=== PATIENT | male | born 1970 | race Caucasian/White ===

== ENCOUNTER 2022-10-10 06:24 | Emergency (ER) | payer MEDICAID ==
[~2022-10-10] VITALS: Ht 170.2 cm; Wt 81.8 kg
[~2022-10-10 06:24] MED LIST: AMLO10TA13 PO; ASPI-611 PO; CARV6.253 PO; CAT2P TD; DOCU100C40 PO; LOSA100T58 PO
[2022-10-10 07:17] LABS: BASOPHILS % (AUTO) 0.4 % (0-1); EOSINOPHILS # (AUTO) 0.1 X10'3 (0-0.9); EOSINOPHILS % (AUTO) 1.1 % (0-6); HEMATOCRIT 36.4 % (42.0-52.0); HEMOGLOBIN 12.1 g/dl (14.0-17.9); LYMPHOCYTES # (AUTO) 0.6 X10'3 (1.1-4.8); MEAN CORPUSCULAR HEMOGLOBIN 31.2 PG (27.0-31.0); MEAN CORPUSCULAR HGB CONC 33.1 g/dL (33.0-36.5); MEAN CORPUSCULAR VOLUME 94.2 FL (78-98); MEAN PLATELET VOLUME 7.1 FL (7.4-10.4); MONOCYTES # (AUTO) 0.4 X10'3 (0-0.9); NEUTROPHILS % (AUTO) 85.5 % (42-75); PLATELET COUNT 234 X10'3 (140-440); RED BLOOD COUNT 3.86 X10'6 (4.70-6.10); RED CELL DISTRIBUTION WIDTH 17.5 % (11.5-14.5)
[2022-10-10 07:31] LABS: APTT 24 SECONDS (22-32)
[2022-10-10 07:33] LABS: ALANINE AMINOTRANSFERASE 19 U/L (12-78); ALBUMIN 4.3 G/DL (3.4-5.0); ALBUMIN/GLOBULIN RATIO 1.2 (1.1-1.5); ALKALINE PHOSPHATASE 22 IU/L (46-116); ANION GAP 6 (8-16); ASPARTATE AMINO TRANSFERASE 22 U/L (10-37); BILIRUBIN,TOTAL 0.7 MG/DL (0.1-1.0); BLOOD UREA NITROGEN 24 MG/DL (7-18); BUN/CREATININE RATIO 3.1 (10.0-20.0); CALCIUM 10.4 MG/DL (8.5-10.1); CHLORIDE 99 MMOL/L (99-107); CREATININE 7.62 MG/DL (0.60-1.10); GLUCOSE 140 MG/DL (70-104); POTASSIUM 3.9 MMOL/L (3.5-5.1); SODIUM 142 MMOL/L (135-145); TOTAL CARBON DIOXIDE 36.8 MMOL/L (24-32); TOTAL PROTEIN 7.8 G/DL (6.4-8.2); eGFR 8 ML/MIN
[2022-10-10] MEDS ORDERED: niCARdipine I.V. 50 MG in normal saline 250ml IV soln 230 ML IV SCH (07:45)
--- NOTE | 2022-10-10 07:46 | NUR ---
Dr. Lauren notified about patiente's high BP
--- NOTE | 2022-10-10 08:04 | NUR ---
I called pharmacist to request for Nicardipine drip ready emeterio
[2022-10-10] MEDS: niCARDipine-NS 40mg/200ml IVPB 250 ML IV SCH ×2 (08:07→14:54)
--- NOTE | 2022-10-10 08:23 | NUR ---
Per Dr. Lauren, our SBP goal is between 160-180 mmHg
[2022-10-10] MEDS ORDERED: meclizine 12.5mg tablet PO ONE (09:15)
[2022-10-10] MEDS ORDERED: ondansetron 4mg rapidly disintigrating tab PO ONE (09:15)
--- NOTE | 2022-10-10 11:10 | NUR ---
Patient did not passed the gait test, he got really dizzy and has unsteady gait. Dr. Lauren notified
--- NOTE | 2022-10-10 11:25 | NUR ---
Patient just went to CT scan for head CT
[2022-10-10 11:42] LABS: CLARITY,URINE CLEAR (Clear); COLOR,URINE STRAW (Yellow); GLUCOSE, URINE 250 mg/dl (Neg); KETONES,URINE NEGATIVE (Neg); LEUKOCYTE ESTERASE ,URINE NEGATIVE (Neg); NITRITES, URINE NEGATIVE (Neg); OCCULT BLOOD,URINE TRACE-INTACT (Neg); PH,URINE 8.5 (4.8-8.0); PROTEIN,URINE 100 mg/dl (Neg); UROBILINOGEN,URINE 0.2 E.U/dL (0.2-1.0)
--- NOTE | 2022-10-10 11:47 | NUR ---
Teleneuro consult initiated. Explained to patient that a neurologist will be talking to him via video call in a while
[2022-10-10 11:50] LABS: UA COLLECTION TYPE CLN CATCH MIDSTREAM
[2022-10-10 11:59] LABS: BACTERIA,URINE NONE SEEN /HPF (Neg); MUCUS STRANDS NONE SEEN /LPF (Neg); RBC,URINE NONE SEEN /HPF (0-2); SQUAMOUS EPITHELIAL CELL,UR FEW /LPF (FEW)
[2022-10-10 12:00] LABS: WBC,URINE 0-4 /HPF (0-4)
--- NOTE | 2022-10-10 13:42 | NUR ---
Teleneuro consultation ongoing.
[2022-10-10] MEDS ORDERED: atorvastatin 20mg tablet PO STA (13:47)
[2022-10-10] MEDS ORDERED: aspirin 325mg tablet PO ONE (13:50)
[2022-10-10] MEDS ORDERED: clopidogrel 75mg tablet PO SCH (14:05)
[2022-10-10 16:02] VITALS: BP 153/100
--- NOTE | 2022-10-10 16:28 | NUR ---
Report given to Tang ALEJANDRO at [facility] IMCU unit.
[2022-10-10] MEDS ORDERED: carVEDilol 3.125mg tablet PO SCH (20:00)
--- NOTE | 2022-10-10 20:38 | NUR ---
1944 transported pt from ER to [facility] with EMS, BP 191/106, HR 84, 99% on room air, increased cardene gtt to 7.5mg/hr, 1949 BP 209/115, pt is resting quietly on gurney, resp even and unlabored, skin p/w/d, GCS 15 alert and oriented x3 1999 BP 186/112, at [facility] 2009 pt able to transfer self without assist from EMS gurney to bed
[2022-10-11] MEDS ORDERED: clopidogrel 75mg tablet PO SCH (08:00)
== END 2022-10-10 20:56 | disposition short-term general hospital (02) ==
LOC: ER 06:26
DX: R42 Dizziness and giddiness (principal); I16.0 Hypertensive urgency; I12.0 Hypertensive chronic kidney disease with stage 5 chronic kidney disease or end stage renal disease; N18.6 End stage renal disease
CPT/HCPCS: 36415; 70450; 71045; 80053; 81001; 83880; 84484; 85025; 85610; 85730; 93005; 96365; 96366; 99291; J3490; J8597

== ENCOUNTER 2024-04-15 11:25 | Day surgery (SDC) | payer MEDICAID ==
[~2024-04-15] VITALS: Ht 170.2 cm; Wt 83.6 kg
[~2024-04-15 11:25] MED LIST changes: -CAT2P TD; +CLON1PAT42 TD
[2024-04-15 12:41] VITALS: BP 161/96; PULSE 65; RESP 16; TEMP 98.2; O2SAT 96
[2024-04-15] MEDS ORDERED: CINA90TA4 PO (13:17)
[2024-04-15] MEDS ORDERED: FERR210T PO (13:17)
[2024-04-15] MEDS ORDERED: CARV12.549 PO (13:17)
[2024-04-15] MEDS ORDERED: CLON0.3T36 PO (13:17)
[2024-04-15] MEDS ORDERED: ATOR40TA72 PO (13:17)
[2024-04-15 13:22] LABS: BASOPHILS # (AUTO) 0.1 X10'3 (0-0.2); BASOPHILS % (AUTO) 1.1 % (0-1); EOSINOPHILS # (AUTO) 0.1 X10'3 (0-0.9); LYMPHOCYTES % (AUTO) 21.7 % (21-51); MEAN CORPUSCULAR HEMOGLOBIN 31.2 PG (27.0-31.0); MEAN CORPUSCULAR HGB CONC 34.1 g/dL (33.0-36.5); MEAN CORPUSCULAR VOLUME 91.4 FL (78-98); MEAN PLATELET VOLUME 7.1 FL (7.4-10.4); MONOCYTES # (AUTO) 0.4 X10'3 (0-0.9); MONOCYTES % (AUTO) 7.9 % (2-12); NEUTROPHILS # (AUTO) 3.2 X10'3 (1.8-7.7); NEUTROPHILS % (AUTO) 66.3 % (42-75); PLATELET COUNT 247 X10'3 (140-440); RED BLOOD COUNT 4.16 X10'6 (4.70-6.10); RED CELL DISTRIBUTION WIDTH 17.7 % (11.5-14.5); WHITE BLOOD COUNT 4.8 X10'3 (4.5-11.0)
[2024-04-15 13:30] VITALS: RESP 16; O2SAT 96
[2024-04-15 13:32] LABS: APTT 28 SECONDS (22-32); INR 1.1 INR; PROTHROMBIN TIME 11.3 SECONDS (9.0-12.0)
[2024-04-15 13:42] LABS: ALANINE AMINOTRANSFERASE 27 U/L (12-78); ALBUMIN 4.1 G/DL (3.4-5.0); ALBUMIN/GLOBULIN RATIO 0.9 (1.1-1.5); ALKALINE PHOSPHATASE 54 IU/L (46-116); ANION GAP 12 (8-16); ASPARTATE AMINO TRANSFERASE 17 U/L (10-37); BILIRUBIN,TOTAL 0.6 MG/DL (0.1-1.0); BLOOD UREA NITROGEN 43 MG/DL (7-18); BUN/CREATININE RATIO 4.1 (10.0-20.0); CALCIUM 9.3 MG/DL (8.5-10.1); CHLORIDE 97 MMOL/L (99-107); GLUCOSE 95 MG/DL (70-104); POTASSIUM 4.4 MMOL/L (3.5-5.1); SODIUM 140 MMOL/L (135-145); TOTAL CARBON DIOXIDE 30.9 MMOL/L (24-32); TOTAL PROTEIN 8.5 G/DL (6.4-8.2); eCRCL 7 ML/MIN; eGFR 5 ML/MIN
[2024-04-15] MEDS ORDERED: heparin 1,000unit/ml 10ml vial 0 ML ONE (14:21)
[2024-04-15] MEDS ORDERED: midazolam 1 mg/ML 2ml injection ONE ×2 (14:21→17:09)
[2024-04-15] MEDS ORDERED: LIDOcaine 1% (10mg/ml)w/preservative inj. 20ml MDV ONE (14:21)
[2024-04-15] MEDS ORDERED: fentaNYL/PF 50MCG/1 ML 2ML syringe ONE ×2 (14:21→17:09)
[2024-04-15] MEDS ORDERED: heparin 1,000 UNITS/NS 500ml 500 ML ONE (14:22)
[2024-04-15] MEDS ORDERED: iohexol 300mg/ml 100ml inj. ONE (14:22)
[2024-04-15] MEDS ORDERED: heparin 1,000unit/ml 10ml vial 10 ML ONE (16:36)
[2024-04-15] MEDS ORDERED: LIDOcaine 1% W/epiNEPHrine 1:100,000 20ml vial ONE (17:35)
[2024-04-15 18:04] VITALS: BP 174/101; PULSE 64; RESP 15; O2SAT 96
[2024-04-15] MEDS ORDERED: normal saline 1000ml 1,000 ML IV SCH (18:15)
[2024-04-15 18:16] VITALS: BP 162/94; PULSE 64; RESP 14; O2SAT 95
[2024-04-15 18:33] VITALS: BP 170/95; PULSE 66; RESP 14; O2SAT 95
[2024-04-15 18:49] VITALS: BP 172/96; PULSE 66; RESP 15; O2SAT 98
== END 2024-04-15 19:10 | disposition home or self-care (01) ==
LOC: SSTAY O 11:25
PROVIDERS: ATTEND Radiology Diagnostic Radiology
DX: T82.858A Stenosis of other vascular prosthetic devices, implants and grafts, initial encounter (principal); J44.9 Chronic obstructive pulmonary disease, unspecified; I12.9 Hypertensive chronic kidney disease with stage 1 through stage 4 chronic kidney disease, or unspecified chronic kidney disease; N18.9 Chronic kidney disease, unspecified; Z79.01 Long term (current) use of anticoagulants; Z79.899 Other long term (current) drug therapy; Y92.89 Other specified places as the place of occurrence of the external cause; Y83.2 Surgical operation with anastomosis, bypass or graft as the cause of abnormal reaction of the patient, or of later complication, without mention of misadventure at the time of the procedure
CPT/HCPCS: 36415; 36558; 36901; 75827; 76937; 77001; 80053; 85025; 85610; 85730; A6258; C1750; C1769; J1644; J2250; J3010; J3490; J7030; Q9967; 99152; 99153; A4620; A6402; A6449; A9270; C1725; C1894

== ENCOUNTER 2025-01-08 01:46 | Inpatient (IN) | payer MEDICAID ==
[2025-01-08] VITALS (15 sets, daily range): BP systolic 125–178; BP diastolic 76–195; PULSE 61–97; RESP 12–20; TEMP 97.4–98.6; O2SAT 94–100
[~2025-01-08] VITALS: Ht 170.2 cm; Wt 73.0 kg
[~2025-01-08 01:46] MED LIST changes: -ASPI-611 PO; +ATOR40TA72 PO; +CARV12.549 PO; -CARV6.253 PO; +CINA90TA4 PO; +CLON0.3T36 PO; -CLON1PAT42 TD; -DOCU100C40 PO; +FERR210T PO
--- NOTE | 2025-01-08 01:56 | Physician Documentation ---
History of Present Illness ~ Stated Complaint: CHEST PAIN Time Seen by MD: 01:56 HPI Patient presents to the emergency room with 45 minutes of acute onset heart racing and chest tightness. No prior instances. Patient missed his dialysis appointment today. He does smoke. Endorses methamphetamine use. Found by EMS to be in SVT. Medication Reconciliation Allergies: Coded Allergies: No Known Allergies (Unverified , 01/08/25) Scheduled Amlodipine Besylate (Amlodipine Besylate), 1 TAB PO DAILY, (Reported) Atorvastatin Calcium (Atorvastatin Calcium), 1 TAB PO DAILY, (Reported) Carvedilol (Carvedilol), 1 TAB PO BID, (Reported) Cinacalcet HCl (Cinacalcet HCl), 1 TAB PO 3 x week, (Reported) Clonidine HCl (Clonidine HCl), 1 TAB PO TID, (Reported) Ferric Citrate (Ferric Citrate), 2 TAB PO TID, (Reported) Losartan Potassium (Losartan Potassium), 1 TAB PO DAILY, (Reported) Past Medical History Past Medical History: Hypertension, *RENAL/*, Chronic Kidney Disease Past Surgical History: noncontributory Patient History: (CAD) Coronary arteriosclerosis FATHER MOTHER Drug Use: none Lives In: Home Review of Systems ROS All review of systems negative except as per HPI Physical Exam Physical Exam General: Patient is awake, alert, oriented x4 in no acute distress Head: Normocephalic and atraumatic. Eyes: Conjunctival normal. EOMI. PERRL. ENT: Mucous membranes moist. Neck: Supple, trachea is midline. Chest: Clear to auscultation bilaterally without rales, rhonchi, or wheezes. There is no accessory muscle use or retractions. Cardiac: Tachycardic and regular without murmurs, gallops, or rubs. Abd: Soft, nondistended, nontender, with normoactive bowel sounds. No guarding, rebound, or rigidity. Extremities: Normal strength. Normal range of motion. No deformities or edema. Progress Results/Orders Results/Orders Orders - EDWIN YANCEY MD MG (01/08/25 01:57) PBNP (01/08/25 01:57) Chest,Single View (01/08/25 01:57) Saline Lock (01/08/25 01:57) Monitor (01/08/25 01:57) Oxygen (01/08/25 01:57) BMP (01/08/25 01:57) Hs Troponin I W Calculations (01/08/25 04:57) Page Hospitalist (01/08/25 03:34) Fill Out Med Reconciliation (01/08/25 03:34) Lipid Panel (01/08/25 02:55) TSH (01/08/25 02:55) Completed Orders - EDWIN YANCEY MD Cbc/Diff (01/08/25 01:57) Electrocardiogram (01/08/25 01:57) Chest,Single View (01/08/25 01:57) Hs Troponin I W Calculations (01/08/25 01:57) Adenosine Inj. (Adenocard Inj.) (01/08/25 02:00) Normal Saline 1000ml (0.9% Sodium Chlori (01/08/25 02:05) Medications Received in ER Medications (Trade) Dose Ordered Sig/Manuela Route PRN Reason Start Time Stop Time Status Last Admin Dose Admin (Adenocard inj.) 12 mg ONCE ONCE IV 01/08/25 02:00 01/08/25 02:01 DC 01/08/25 02:13 12 MG (0.9% sodium chloride (NS) 1000ml IV soln) 500 ml ONCE ONCE IVB 01/08/25 02:05 01/08/25 02:07 DC 01/08/25 02:20 500 ML Vital Signs 01/08/25 01/08/25 01/08/25 02:05 02:21 02:23 Temp 98.6 Pulse 166 76 Resp 20 16 B/P (MAP) 150/95 Pulse Ox 96 94 Laboratory Tests Test 01/08/25 02:55 White Blood Count 4.7 Red Blood Count 3.35 L Hemoglobin 10.4 L Hematocrit 30.1 L Mean Corpuscular Volume 89.8 Mean Corpuscular Hemoglobin 31.1 H Mean Corpuscular Hemoglobin Concent 34.6 Red Cell Distribution Width 15.3 H Platelet Count 154 Mean Platelet Volume 7.1 L Neutrophils (%) (Auto) 72.2 Lymphocytes (%) (Auto) 14.6 L Monocytes (%) (Auto) 7.2 Eosinophils (%) (Auto) 5.4 Basophils (%) (Auto) 0.6 Neutrophils # (Auto) 3.4 Lymphocytes # (Auto) 0.7 L Monocytes # (Auto) 0.3 Eosinophils # (Auto) 0.3 Basophils # (Auto) 0.0 CBC Comment Prothrombin Time 11.8 INR International Normalized Ratio 1.2 D-Dimer 1.84 H D-Dimer Comment Coagulation Comments Sodium Level 139 Potassium Level 5.7 H Chloride Level 96 L Carbon Dioxide Level 27.4 Anion Gap 16 Blood Urea Nitrogen 72 H Creatinine 13.22 H Estimated GFR/1.73 m2 4 BUN/Creatinine Ratio 5.4 L Glucose Level 109 H Calcium Level 8.8 Magnesium Level 2.1 Troponin I High Sensitivity 154 *H Pro-B-Type Natriuretic Peptide 2049 H Albumin 3.8 Chemistry Comments EKG/XRAY/CT/US/VASC/MRI EKG : Additional Comment EKG interpreted by myself shows time of 0149, rate 166, supraventricular tac hycardia, normal axis, diffuse ST depression. Repeat EKG interpreted by myself shows time of 0221, rate 94, sinus rhythm, normal axis, noted ST-T depressions in V3 through V6 Medical Decision Making Findings Patient presented to the emergency room in severe tachycardia complaining of chest pain. Differentials include but are not limited to ACS, AFib, V-tach, arrhythmia, electrolyte disturbances, pneumothorax therefore emergent labs and imaging indicated. Patient found to be in SVT and was converted successfully on 1st attempt with a adenosine. Of concern is patient's elevated heart score of five. He has not had a stress test since 2019 therefore we will admit for further investigation. Noted elevation of troponins however no ST-elevation and patient was suffering from renal failure needing dialysis. He is due today. Departure Admitted to Inpatient Unit: yes, to hospitalist Impression: Primary Impression: Chest pain Additional Impressions: End stage renal disease Hyperkalemia SVT (supraventricular tachycardia) Referrals: NO PRIMARY CARE PROVIDER (PCP) Critical Care Note Total Time (mins): 35 Critical Care Note The very real possibility of a deterioration of this patient's condition required the highest level of my preparedness for sudden, emergent intervention. I provided critical care services, which included medication orders, frequent reevaluations of the patient's condition and response to treatment, ordering and reviewing test results, and discussing the case with various consultants. Excludes time spent performing separately billable procedures. The critical care time associated with the care of the patient was 35 minutes not counting procedures Signature Scribe Signature: No scribe Attestation: The note accurately reflects work and decisions made by me.Edwin Yancey MD 01/08/25 05:55 EDWIN YANCEY MD Jan 08, 2025 01:56
--- NOTE | 2025-01-08 01:59 | ELECTROCARDIOGRAPH REPORT ---
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
[2025-01-08] MEDS: adenosine 3mg/ml 2ml vial IV ONE (02:13)
[2025-01-08] MEDS: normal saline 1000ML IV soln IVB ONE (02:20)
[2025-01-08 03:09] LABS: MEAN PLATELET VOLUME 7.1 FL (7.4-10.4); RED CELL DISTRIBUTION WIDTH 15.3 % (11.5-14.5)
--- NOTE | 2025-01-08 03:17 | RADIOLOGY REPORT ---
CHEST RADIOGRAPH Indication: CP Technique: Single frontal view of the chest was obtained COMPARISON: CHEST,SINGLE VIEW on DOS: 10/10/22 FINDINGS: Lines and Tubes: Right PermCath tip overlies the distal superior vena cava. Lungs: Clear Pleura: No effusion. No pneumothorax. Cardiomediastinal contours: Unremarkable. Atherosclerotic vascular calcifications. Bones: Unremarkable IMPRESSION: 1. No acute disease. 2. Right PermCath.
[2025-01-08 03:33] LABS: CREATININE 13.22 MG/DL (0.60-1.10); TOTAL CARBON DIOXIDE 27.4 MMOL/L (24-32); eCRCL 6 ML/MIN; eGFR 4 ML/MIN
[2025-01-08 03:59] LABS: PRO BRAIN NATRIURETIC PEPTIDE 2049 PG/ML (0-125)
[2025-01-08] MEDS ORDERED: potassium Cl 40MEQ/1/2NS 520ml 520 ML IV PRN (04:05)
[2025-01-08] MEDS ORDERED: mag hydrox/Alum hydrox/simeth 30ml oral suspension PO PRN (04:05)
[2025-01-08] MEDS ORDERED: magnesium sulf-water 2g/50mL 50 ML IV PRN (04:05)
[2025-01-08] MEDS ORDERED: magnesium hydroxide 30ml (MOM) UD suspension PO PRN (04:05)
[2025-01-08] MEDS ORDERED: ondansetron/PF 4mg/2ml inj IV PRN (04:05)
[2025-01-08] MEDS ORDERED: potassium Cl 20 mEq SR tablet PO PRN ×2 (04:05)
[2025-01-08] MEDS ORDERED: magnesium sulf-water 4G/100mL 100 ML IV PRN (04:05)
[2025-01-08] MEDS ORDERED: magnesium Cl slow-release 64mg tablet PO PRN (04:05)
[2025-01-08] MEDS ORDERED: PERFLUTREN PROTEIN-A MICROSPHR (Optison) 0.22 MG/ML 3ML VIAL IV PRN (05:05)
[2025-01-08 05:20] LABS: INR 1.2 INR
--- NOTE | 2025-01-08 05:43 | HISTORY AND PHYSICAL-Residence ---
History & Physical Providers to CC Resident Creating Document: JONES SINGH, RES ~ History of Present Illness Reason for Admit\Complaint: Chest pain History of Present Illness 54 years old man with past medical history of End Stage renal disease on dialysis , Hypertension and Hyperlipidemia presented to ED with Sudden episode of severe dull chest pain of 9/10 non-radiating, lasted for 40 mins while at rest , associated with cold sweats. Pain decreased to 1/10 at evaluation. On arrival , Initial EKG showed SVT(HR>160),which is converted to sinus rhytm after a single dose of adenosine. this was his first episode of chest pain and he denies any prior cardiac history. he also reports shortness of breath on and off with intermittent cough producing small amount of greenish sputum. Patient denies any orthopnea,PND,Legswelling, syncope, hemoptysis, fever and recent travel Allergies: Coded Allergies: No Known Allergies (Unverified , 01/08/25) Home Medications Home Medications Active Reported Cinacalcet HCl 90 Mg Tablet 1 Tab PO 3 X WEEK Atorvastatin Calcium 40 Mg Tablet 1 Tab PO DAILY Carvedilol 12.5 Mg Tablet 1 Tab PO BID Clonidine HCl 0.3 Mg Tablet 1 Tab PO TID Ferric Citrate 210 Mg Iron Tablet 2 Tab PO TID Losartan Potassium 100 Mg Tablet 1 Tab PO DAILY Amlodipine Besylate 10 Mg Tablet 1 Tab PO DAILY Past Medical History Past Medical History End Stage renal disease - undergoing dialysis on every Friday,Friday,Friday. Hypertension Hyperlipidemia Past Surgical History Surgical History Comment Appendectomy Family History Family History: (CAD) Coronary arteriosclerosis FATHER MOTHER Past Social History Social History Comment patient smokes 3 cigarettes a day, Not a Alcohol drinker, Patient do marijuana, and patient do methamphetamine He is a homeless Patient is able to walk with out support His Examiner Rating Clerk : Dr Donaldo DE ANDA Constitutional: No weakness , No dizziness , No fever,no change in appetite/weight HEENT: , No blurring of the vision, No sore throat, no epistaxis, no tinnitus Cardiovascular: chest pain/discomfort, palpitations, No syncope. No pedal edema Respiratory: Intermitted SOB and cough with green sputum , NOhemoptysis Gastrointestinal: No abdominal pain, nausea, vomiting. No diarrhea, constipation, melena. Genitourinary: No frquency, urgency, incontinence, nocturia. No dysuria, hematuria Musculoskeletal: No arthralgia, myalgia Endocrine: No polydipsia, polyuria. No heat or cold intolerance Neurologic: No headache, vertigo. No weakness, numbness or tingling of extremities Psychiatric: No hallucinations/delusions, no anhedonia, no suicidal ideation Hematologic: No bleeding or bruises Exam Vitals: Vital Signs Date Time Temp Pulse Resp B/P (MAP) Pulse Ox O2 Delivery O2 Flow Rate FiO2 01/08/25 02:23 01/08/25 02:21 76 16 94 01/08/25 02:05 98.6 General: General : Patient is sleepy during examination and oriented x4, resting comfortably in the bed, in no acute distress HEENT: Atraumatic, normocephalic, EOMI, anicteric sclera ; pink conjunctiva Neck: Trachea midline. Supple, full range of motion, no JVD Cardiac: Regular rhythm, regular rate with no murmurs all over the precordium. Respiratory: Equal breath sounds bilaterally, no tachypnea, no wheezing ,rub or rales, Chest wall is symmetric and without deformity. Gastrointestinal: Abdomen symmetric, non-distended, soft, non-tender, normal bowel sounds x4 quadrant, normoactive, no hepatosplenomegaly Musculoskeletal: No pedal edema, no cyanosis, peripheral pulses felt Neurological: No motor or sensory deficit,Cranial nerves II-XII intact. Skin: Warm and dry Diagnostic Data Last Recorded Lab Results: 01/08/25 0255 01/08/25 0255 Diagnostic Data: Laboratory Tests Test 01/08/25 02:55 Prothrombin Time 11.8 SECONDS (9.0-12.0) INR International Normalized Ratio 1.2 INR D-Dimer 1.84 MG/L FEU (0-0.50) H D-Dimer Comment Coagulation Comments Additional Plan 54 years man with EDRD on dialysis, HTN and Hyperlipidemia is currently first episode of prolong chest pain and SVT Acute chest pain possible NSTEMI Patient presented with Chest pain and racing heart now pain is now subsided BP :155/95 ,OK: 76 EKG-Initial EKG showed SVT and now its sinus rhytm after getting Adenosine 12 mg IV once in ER Serial Troponins are pending - 154- chest xray : Cardiomediastinal contours: Unremarkable. Atherosclerotic vascular calcifications seems to be a right lower lobe consolidation confirm with CT [id number] Plan : Ordered Echocardiogram Pending troponin started Aspirin 81mg NPO midnight Tania today Possible cardiology consult Today Supraventricular tachycardia Patient initially present to ED with chest pain and SVT of 160bpm and his initial EKG shows supraventricular tachycardia, normal axis, diffuse ST depression and ED doctor gave him One dose of Adenosine 12mg IV and after that patient is maintaining sinus rythm of 76 Last EKG shows - sinus rhythm, normal axis, noted ST-T depressions in V3 through V6 Plan: continue monitor in telemetry Suspected case of pneumonia : chest xray : Cardiomediastinal contours: Unremarkable. Atherosclerotic vascular calcifications seems to be a right lower lobe consolidation confirm with CT Plan: Follow up with CT chest Ordered Rocephin 1gram iv Daily and Azithromycin 500 mg po BID Follow up with ESR/CRP/Procalcitonin Endstage renal disease on Dialysis BUN: 72 Cr: 13.22 Patient undergoes dialysis every friday, and friday by Hypertension: Bp: 150/95 and Pr:76 Plan: Continue Home meds- Amlodipine 10 mg Po daily , Carvedilol 12.5mg po BID, Clonidine 0.3mg Po TID, Losartan 100mg PO daily after med reconciliation Pending Med rec Hyperlipidemia: Continue home med Atrovastatin 40 mg Pending med rec Ordered Lipid panel Code Status: Full DVT Prophylaxis: Heparin drip Lines/Tubes:peripheral Nutrition: NPO PT: ordered Prognosis: Guarded Disposition: Patient with chest pain and SVT with Troponin of 154 pending troponis and patient will be monitored In PCU with telemetry and, we will put on NPO tonight and possible cardiology consult and Tania scan Jones Singh MD Internal Medicine Resident PGY-1 Fusaro Addendum #1 Neuro: - Monitor for delirium. #2 CV: - Supraventricular tachycardia resolved after adenosine. Mild trop elevation in setting of svt and ESRD The patient has history of hypertension. - If hemodynamically stable, continue home BP meds. - Rate control patient to < 110. #3 Pulm: Consolidation on CXR with evidence of SIRS consistent with suspected right lower lobe pneumonia. - Treat with azithromycin and ceftriaxone. - Monitor for respiratory distress. #4 GI: - Advance diet when ok with primary. #5 Renal: Patient has history of end-stage renal disease. - Consult nephrology and discuss need for dialysis. - Renally adjust medications. - Monitor electrolytes due to hyperkalemia #6 ID: Suspected right lower lobe pneumonia. Can get CT to confirm. Pt cough with productive green sputum - Continue azithromycin and ceftriaxone. - Send blood cultures, sputum cultures. - Check for COVID-19, respiratory virus panel, Legionella Ag, and Chlamydia spp Ag. #7 Endo: - Maintain fasting glucose 150-180. Patient has history of hyperlipidemia. - Continue statin and lipid-lowering agents. #8 Heme/Onc: - Monitor for bleeding and blood clots. - Keep Hgb >7 and plt >10. #9 PPx: - Initiate chemical DVT prophylaxis. I saw this patient and completed a full visual exam via audio-visual HIPAA compliant technology. Date of Service: Jan 08, 2025 Billing Provider: ADAL BRANNON MD, SATISH, RES Jan 08, 2025 05:43 ADAL BRANNON MD Jan 08, 2025 08:33
[2025-01-08 06:10] LABS: CHOL/HDL RATIO 2.3 (0.00-4.99); LDL CHOLESTEROL 49 MG/DL (50-100)
--- NOTE | 2025-01-08 06:16 | ELECTROCARDIOGRAPH REPORT ---
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
[2025-01-08] MEDS ORDERED: CLON0.2T PO (06:41)
[2025-01-08] MEDS: sodium polystyrene sulfonate 15gm/60ml oral suspension PO ONE ×2 (06:53→08:09)
[2025-01-08] MEDS: CefTRIAXone/D5W-Rocephin 1gm 50 ML IV SCH (07:59)
[2025-01-08] MEDS ORDERED: heparin, porcine 5000 units/ml vial SQ SCH ×2 (08:00)
[2025-01-08] MEDS: K and/or MAG REPLACEMENT MC SCH (08:00)
[2025-01-08] MEDS: insulin regular, human 10 units/0.1 ml syringe IV ONE (08:02)
[2025-01-08] MEDS: dextrose 50%-water 50ml dispensing syringe IV ONE (08:02)
[2025-01-08] MEDS: heparin 10,000 units/1 ML INJ IV ONE (08:11)
[2025-01-08] MEDS: heparin 25,000 UNIT/250ml bag 250 ML IV PRN (08:13)
[2025-01-08] MEDS: aspirin 81mg, enteric-coated 1 TAB TABLET.DR PO SCH (08:14)
[2025-01-08] MEDS: docusate sod 100mg capsule PO SCH (08:25)
[2025-01-08] MEDS: MESSAGE TO NURSING IV ONE ×3 (08:26→23:08)
[2025-01-08 08:31] LABS: APTT 25 SECONDS (22-32)
[2025-01-08] MEDS ORDERED: normal saline 1000ml 100 ML IV PRN (08:50)
--- NOTE | 2025-01-08 09:55 | PROGRESS NOTE ---
Daily Progress Note Providers to CC ~ Antibiotic Timeout Antibiotic Ordered?: Yes Subjective The patient is currently denying any chest pain in his troponin did up trend significantly however he has a dialysis patient and was not SVT a Lexiscan stress test as ordered and I did discuss the case with Dr. Henry make up editor who was rounding on patient's on PCU and we will arrange for dialysis today. Objective Vital Signs Date Time Temp Pulse Resp B/P (MAP) Pulse Ox O2 Delivery O2 Flow Rate FiO2 01/08/25 06:46 67 01/08/25 06:14 97.5 12 129/79 (96) 100 Room Air 01/08/25 05:50 2.0 Result Diagram: 01/08/2525401/08/25254 Gen. No acute distress alert and oriented 4 Lungs clear to ascultation bilaterally, no wheezes rales or rhonchi appreciated, note tunneling dialysis catheter is present right upper chest Heart normal sinus rhythm no murmurs rubs or clicks noted Abdomen soft nontender bowel sounds are normoactive Lower extremities no clubbing cyanosis, nor edema appreciated bilaterally Coagulation Studies Laboratory Tests Test 01/08/25 02:55 01/08/25 08:00 Prothrombin Time 11.8 SECONDS (9.0-12.0) INR International Normalized Ratio 1.2 INR D-Dimer 1.84 MG/L FEU (0-0.50) H D-Dimer Comment Activated Partial Thromboplast Time 25 SECONDS (22-32) Coagulation Comments Problem\Assessment\Plan Problems/Diagnosis: (1) SVT (supraventricular tachycardia) # SVT Converted with adenosine # chest pain with elevated troponin evaluate for NSTEMI Lexiscan stress test as ordered Echocardiogram Elevated troponins possibly secondary to SVT and are falsely elevated secondary to end-stage renal disease on dialysis. Chest pain possibly secondary to SVT # methamphetamine use disorder I did speak to the patient that this is a risk factor to cause SVT # hyperkalemia # end-stage renal disease # noncompliance with dialysis Evaluated by Dr. Henry make up editor who will be following in his arranging for dialysis today. Normal dialysis days are Friday and Friday. Anticipate potassium will normalize with dialysis treatment # possible pneumonia on chest x-ray Started on a Rocephin CTA of the chest is ordered # hypertension We will restart home meds once med rec is completed # hyperlipidemia Awaiting med rec Date of Service: Jan 08, 2025 Billing Provider: KAREN DANIELS DO Common Visit Codes: NOT BILLABLE (Admitted after midnight to be billed by food service kitchen supervisor) KAREN DANIELS DO Jan 08, 2025 09:55
[2025-01-08 10:28] LABS: MEAN PLATELET VOLUME 7.7 FL (7.4-10.4); RED CELL DISTRIBUTION WIDTH 15.3 % (11.5-14.5)
[2025-01-08] MEDS: heparin 1,000 units/ml 10ml inj HE ONE ×2 (12:18→12:19)
--- NOTE | 2025-01-08 13:42 | CONSULTATION REPORT ---
Consult Providers to CC ~ History of Present Illness Reason for Admit\Complaint: Chest Pain History of Present Illness 54 years old man with past medical history of End Stage renal disease on dialysis, M, W, F schedule, Hypertension and Hyperlipidemia presented to ED with abrupt onset of CP that he describes as 9/10 without radiation, the episode resolved in less than an hour, it was not associated with activity, he does sate that he had some diaphoresis as well, initial EKG showed SVT(HR>160),converted to NSR wit Adenosine in the ED, he denied previous episodes of pain, but did report intermittent SOB, he denied other associated cardiac or pulmonary symptoms. Allergies: Coded Allergies: No Known Allergies (Unverified , 01/08/25) Home Medications Home Medications Active Reported Clonidine HCl 0.2 Mg Tablet 2 Tab PO TID 30 Days Cinacalcet HCl 90 Mg Tablet 1 Tab PO 3 X WEEK Atorvastatin Calcium 40 Mg Tablet 1 Tab PO DAILY Carvedilol 12.5 Mg Tablet 1 Tab PO BID Ferric Citrate 210 Mg Iron Tablet 2 Tab PO TID Losartan Potassium 100 Mg Tablet 1 Tab PO DAILY Amlodipine Besylate 10 Mg Tablet 1 Tab PO DAILY Past Medical History Past Medical History Reviewed Past Surgical History Surgical History Comment Reviewed Family History Family History: (CAD) Coronary arteriosclerosis FATHER MOTHER Past Social History Social History Comment Reviewed ROS ROS All other systems without symptoms Exam Vitals: Vital Signs Date Time Temp Pulse Resp B/P (MAP) Pulse Ox O2 Delivery O2 Flow Rate FiO2 01/08/25 13:00 82 18 156/100 (118) 98 Room Air 01/08/25 11:00 97.4 01/08/25 05:50 2.0 Appears comfortable, A & O X 3 RRR w/o murmur, no JVD CTA B, no wheezes +BS, NT No edema Diagnostic Data Last Recorded Lab Results: 01/08/25 0939 01/08/25 0255 Diagnostic Data: Laboratory Tests Test 01/08/25 02:55 01/08/25 08:00 Prothrombin Time 11.8 SECONDS (9.0-12.0) INR International Normalized Ratio 1.2 INR D-Dimer 1.84 MG/L FEU (0-0.50) H D-Dimer Comment Activated Partial Thromboplast Time 25 SECONDS (22-32) Coagulation Comments Problems: (1) Abnormal acid-base balance Assessment & Plan: Consistent with missed dialysis and ESRD-HD, adjust dialysate (2) Anemia due to pre-ESRD treated with erythropoietin Assessment & Plan: ARLINE indicated for Hgb goal less than 10 (3) Hyperphosphatemia Assessment & Plan: Continue home PO4 binders, Calcium acetate 667 mg with meals (4) Hyperparathyroidism due to end stage renal disease on dialysis Assessment & Plan: Maintain PO4 at less than 5.5, , continue home regimen (5) Hypertension Status: Chronic Assessment & Plan: Goal less than 140/90 in the acute care setting, continue home regimen, additional UF with dialysis (6) ESRD on dialysis Status: Acute Assessment & Plan: Plan on iHD today and tomorrow for additional UF removal (7) Chest pain Status: Acute Assessment & Plan: Improved, likely demand ischemia, but would not assign his symptoms to dialysis/ESRD withou the appropriate evaluation Sepsis Screening Skin Color: Normal WALL,DEV Case III DO Jan 08, 2025 13:42
[2025-01-08] MEDS: heparin 10,000 units/1 ML INJ IV PRN (23:07)
[2025-01-09] VITALS (18 sets, daily range): BP systolic 118–184; BP diastolic 58–101; PULSE 58–98; RESP 11–20; TEMP 97.6–98.7; O2SAT 97–100
[2025-01-09 06:11] LABS: MEAN PLATELET VOLUME 7.7 FL (7.4-10.4); RED CELL DISTRIBUTION WIDTH 15.3 % (11.5-14.5)
[2025-01-09 06:33] LABS: CREATININE 9.32 MG/DL (0.60-1.10); TOTAL CARBON DIOXIDE 28.1 MMOL/L (24-32); eCRCL 8 ML/MIN; eGFR 6 ML/MIN
[2025-01-09] MEDS: MESSAGE TO NURSING IV ONE ×3 (06:51→23:12)
[2025-01-09 08:48] LABS: PHOSPHORUS 9.7 MG/DL (2.3-4.5)
[2025-01-09] MEDS ORDERED: metoprolol tartrate 1mg/ml inj IV PRN (09:25)
[2025-01-09] MEDS ORDERED: aminophylline 250mg/10ml inj. IV PRN (09:25)
[2025-01-09] MEDS: regadenoson 0.4mg/5ml syringe IV PRN (09:43)
--- NOTE | 2025-01-09 11:09 | RADIOLOGY REPORT ---
HISTORY: NSTEMi TECHNIQUE: At peak stress, 9.5 mCi of sestamibi was administered intravenously. Soon thereafter, gated SPECT im aging of the heart was performed with the patient in the supine position. At rest, 37 mCi of sestamibi was administered intravenously. Soon thereafter, gated SPECT imaging of the heart was performed with the patient in the supine position. FINDINGS: The left ventricular myocardium demonstrates uniform radiotracer distribution, without perfusion defe ct. The left ventricular cavity is normal in size. Calculated LVEF is 42%. No segmental wall motion abnor mality. IMPRESSION: No focal myocardial perfusion defects. Lvef = 42%.
[2025-01-09] MEDS: heparin 1,000 units/ml 10ml inj HE ONE ×2 (11:17→11:18)
--- NOTE | 2025-01-09 12:18 | CARDIOLOGY REPORT ---
APPROVED REPORT EXAM: Comprehensive 2D, Doppler, and color-flow Echocardiogram. Patient Location: [address] Heart Rate: 60's bpm Rhythm: SINUS Indications CHEST PAIN HYPERTENSION METH USE Baccarat Manager: NONE Previous echo: 03-24-22 [facility] EF 75-80%, modLVH, trTR, trMR 2D Dimensions RVDd 2.7 cm LA Diam4.3 cm IVSd 1.5 (0.7-1.1cm) LVDd 4.1 cm PWd 1.5 (0.7-1.1cm) IVSs 1.6 (0.8-1.2cm) LVDs 3.5 (2.5-4.0cm) PWs 1.9 (0.8-1.2cm) LVOT Diameter 2.15 (1.8-2.4cm) FS (%) 14.7 % SV 23.3 ml CO 1.4 L/min M-Mode Dimensions Aortic Root 3.26 (2.2-3.7cm) Aortic Cusp Exc 1.94 (1.5-2.0cm) Aortic Valve AoV Peak Rasheed. 170.3 cm/s AoV VTI 32.7 cm AO Peak GR. 11.6 mmHg AO Mean GR. 7 mmHg LVOT VTI 21.30 cm LVOT Peak Rasheed. 117.6 cm/s ERNESTO(VTI)/BSA 2.36 cm2/m2 ERNESTO (VTI) 2.36 cm2 Mitral Valve MV E Velocity 57.7 cm/s MV Peak Gr. 4 mmHg MV A Velocity 68.0 cm/s MV PHT 72 ms E/A Ratio 0.8 MVA (PHT) 3.06 cm2 MV ICeu034.6 cm/s TDI Lateral E' P. V6.01 cm/s E/Lateral E' 9.6 LEFT VENTRICLE Normal LV size and hyperdynamic function. Increase LV velocity of 221 cm/s. Peak LV gradient of 19 mm Hg at rest. Peak LV gradient of 22 mmHg with Valsalva maneuver. Velocity increase throughtout due to hyperdynamic LV function. Moderate concentric hypertrophy. LVEF is 75-80%. RIGHT VENTRICLE RV is normal size and function. ATRIA Left atrium is mildly dilated. AORTIC VALVE Trileaflet AV appears mildly sclerotic without stenosis. No insufficiency. MITRAL VALVE Mild MV annular calcification without stenosis. Trace regurgitation. TRICUSPID VALVE TV appears structurally normal with trace regurgitation. PULMONIC VALVE Normal PV without stenosis, physiologic insufficiency. GREAT VESSELS The aortic root is normal in size. PERICARDIUM Normal pericardium. No effusion. Other Information Study Quality: Adequate but difficult SSN window. Conclusion Normal LV size and hyperdynamic function. Increase LV velocity of 221 cm/s. Peak LV gradient of 19 mm Hg at rest. Peak LV gradient of 22 mmHg with Valsalva maneuver. Velocity increase throughtout due to hyperdynamic LV function. Moderate concentric hypertrophy. LVEF is 75-80%. RV is normal size and function. Left atrium is mildly dilated. Trileaflet AV appears mildly sclerotic without stenosis. No insufficiency. Mild MV annular calcification without stenosis. Trace regurgitation. TV appears structurally normal with trace regurgitation. Normal PV without stenosis, physiologic insufficiency. Normal pericardium. No effusion.
[2025-01-09] MEDS: calcium acetate 667mg (PhosLO) capsule PO SCH (13:46)
--- NOTE | 2025-01-09 14:59 | PROGRESS NOTE ---
Progress Note Dictate Providers to CC ~ Antibiotic Ordered?: N/A Subjective Subjective Doing well, CP resolved, HD today Objective Vitals Vital Signs Date Time Temp Pulse Resp B/P (MAP) Pulse Ox O2 Delivery O2 Flow Rate FiO2 01/09/25 12:45 98.4 98 20 140/80 (100) 97 Room Air 01/08/25 05:50 2.0 Appears comfortable RRR w/o murmur CTA B +BS, NT No edema Lab Results: 01/09/25 0535 01/09/25 0535 Coagulation Studies Laboratory Tests Test 01/08/25 02:55 01/08/25 08:00 01/09/25 13:44 Prothrombin Time 11.8 SECONDS (9.0-12.0) INR International Normalized Ratio 1.2 INR D-Dimer 1.84 MG/L FEU (0-0.50) H D-Dimer Comment Activated Partial Thromboplast Time 25 SECONDS (22-32) APTT (Heparin Protocol) 82 SECONDS (45-60) H Coagulation Comments Other Results I & O 01/09/25 07:00 Intake Total 2267 ml Output Total 6000 ml Balance -3733 ml Intake Oral 1660 ml Hemodialysis 500 ml Other 107 ml Output Urine Total 0 ml Hemodialysis 3000 ml Other 3000 ml # Bowel Movements 2 Problem\Assessment\Plan Problems/Diagnosis: (1) Abnormal acid-base balance Assessment & Plan: Consistent with missed dialysis and ESRD-HD, adjust dialysate (2) Anemia due to pre-ESRD treated with erythropoietin Assessment & Plan: ARLINE indicated for Hgb goal less than 10 (3) Hyperphosphatemia Assessment & Plan: Continue home PO4 binders, Calcium acetate 667 mg with meals (4) Hyperparathyroidism due to end stage renal disease on dialysis Assessment & Plan: Maintain PO4 at less than 5.5, , continue home regimen (5) Hypertension Assessment & Plan: Goal less than 140/90 in the acute care setting, continue home regimen, additional UF with dialysis (6) ESRD on dialysis Assessment & Plan: Plan on iHD today and tomorrow for additional UF removal (7) Chest pain Assessment & Plan: Improved, likely demand ischemia, but would not assign his symptoms to dialysis/ESRD withou the appropriate evaluation Sepsis Screening Skin Color: Normal WALL,DEV M III DO Jan 09, 2025 14:58
[2025-01-09 18:41] LABS: LEUKOCYTE ESTERASE ,URINE NEGATIVE (Neg); NITRITES, URINE NEGATIVE (Neg); OCCULT BLOOD,URINE NEGATIVE (Neg)
[2025-01-09 18:49] LABS: UA COLLECTION TYPE NON-SPECIFIED
[2025-01-09 18:52] LABS: SPERM MODERATE /HPF (NEGATIVE); SQUAMOUS EPITHELIAL CELL,UR FEW /LPF (FEW)
--- NOTE | 2025-01-09 18:55 | PROGRESS NOTE ---
Daily Progress Note Providers to CC ~ Antibiotic Timeout Antibiotic Ordered?: Yes Subjective The patient's serum phosphorus level was 9.4 today- I have restarted the patient phosphorus binder PhosLo 2001 mg t.i.d. with meals the patient has received another dialysis treatment today and was complaining of being hot while receiving dialysis his blood pressure had improved significantly with dialysis treatment. Lexiscan stress test was negative Objective Vital Signs Date Time Temp Pulse Resp B/P (MAP) Pulse Ox O2 Delivery O2 Flow Rate FiO2 01/09/25 12:45 98.4 98 20 140/80 (100) 97 Room Air 01/08/25 05:50 2.0 Result Diagram: 01/09/2535 01/09/2535 Gen. No acute distress alert and oriented 4 Lungs clear to ascultation bilaterally, no wheezes rales or rhonchi appreciated, note tunneling dialysis catheter is present right upper chest Heart normal sinus rhythm no murmurs rubs or clicks noted Abdomen soft nontender bowel sounds are normoactive Lower extremities no clubbing cyanosis, nor edema appreciated bilaterally Coagulation Studies Laboratory Tests Test 01/08/25 02:55 01/08/25 08:00 01/09/25 13:44 Prothrombin Time 11.8 SECONDS (9.0-12.0) INR International Normalized Ratio 1.2 INR D-Dimer 1.84 MG/L FEU (0-0.50) H D-Dimer Comment Activated Partial Thromboplast Time 25 SECONDS (22-32) APTT (Heparin Protocol) 82 SECONDS (45-60) H Coagulation Comments Problem\Assessment\Plan Problems/Diagnosis: (1) SVT (supraventricular tachycardia) # SVT Converted with adenosine # chest pain with elevated troponin evaluate for NSTEMI Lexiscan stress test is negative Echocardiogram Elevated troponins possibly secondary to SVT and are falsely elevated secondary to end-stage renal disease on dialysis. Chest pain possibly secondary to SVT # methamphetamine use disorder I did speak to the patient that this is a risk factor to cause SVT # hyperkalemia # end-stage renal disease # noncompliance with dialysis Evaluated by Dr. Henry sex crimes detective who will be following in his arranging for dialysis today. Normal dialysis days are Friday and Friday. Resolved with dialysis # hyperphosphatemia Restart PhosLo Monitor daily phosphorus levels # possible pneumonia on chest x-ray Started on a Rocephin CTA of the chest is ordered # hypertension On amlodipine, carvedilol, clonidine and losartan # hyperlipidemia Continue atorvastatin Disposition: Awaiting physical therapy eval Sepsis Screening Skin Color: Normal Date of Service: Jan 09, 2025 Billing Provider: KAREN DANIELS DO Common Visit Codes: [id number] INP/OBS CARE(HIGH) KAREN DANIELS DO Jan 09, 2025 18:55
[2025-01-10 01:38] VITALS: PULSE 68; RESP 16; TEMP 98.5; O2SAT 100
[2025-01-10 06:00] VITALS: BP 185/103; PULSE 64; RESP 20; TEMP 98; O2SAT 100
[2025-01-10] MEDS: MESSAGE TO NURSING IV ONE (07:31)
[2025-01-10 08:11] VITALS: BP 170/95; PULSE 64
[2025-01-10 09:05] LABS: MEAN PLATELET VOLUME 7.9 FL (7.4-10.4); RED CELL DISTRIBUTION WIDTH 15.4 % (11.5-14.5)
[2025-01-10 09:10] VITALS: BP 113/72; PULSE 64
[2025-01-10 09:38] LABS: PHOSPHORUS 8.9 MG/DL (2.3-4.5); TOTAL CARBON DIOXIDE 24.3 MMOL/L (24-32)
[2025-01-10 09:44] LABS: CREATININE 9.33 MG/DL (0.60-1.10); eCRCL 8 ML/MIN; eGFR 6 ML/MIN
[2025-01-10] MEDS: aspirin 81mg, enteric-coated 1 TAB TABLET.DR PO ONE (10:15)
[2025-01-10] MEDS ORDERED: NALT50TA5 PO (10:27)
--- NOTE | 2025-01-10 13:07 | PROGRESS NOTE ---
Progress Note Dictate Providers to CC ~ Antibiotic Ordered?: N/A Subjective Subjective Doing well today, no specific complaints, tolerated dialysis well Objective Vitals Vital Signs Date Time Temp Pulse Resp B/P (MAP) Pulse Ox O2 Delivery O2 Flow Rate FiO2 01/10/25 09:10 64 113/72 (86) 01/10/25 08:00 Room Air 01/10/25 06:00 98.0 20 100 01/08/25 05:50 2.0 RRR w/o m, no JVD CTAB, no wheezes +BS, NT No edema Lab Results: 01/10/25 0746 01/10/25 0746 Coagulation Studies Laboratory Tests Test 01/08/25 02:55 01/08/25 08:00 01/10/25 05:50 Prothrombin Time 11.8 SECONDS (9.0-12.0) INR International Normalized Ratio 1.2 INR D-Dimer 1.84 MG/L FEU (0-0.50) H D-Dimer Comment Activated Partial Thromboplast Time 25 SECONDS (22-32) APTT (Heparin Protocol) 60 SECONDS (45-60) Coagulation Comments Other Results I & O 01/10/25 07:00 Intake Total 1522 ml Output Total 1635 ml Balance -113 ml Intake Oral 890 ml Hemodialysis 500 ml Other 132 ml Output Urine Total 100 ml Hemodialysis 1535 ml Problem\Assessment\Plan Problems/Diagnosis: (1) Abnormal acid-base balance Assessment & Plan: Consistent with missed dialysis and ESRD-HD, adjust dialysate (2) Anemia due to pre-ESRD treated with erythropoietin Assessment & Plan: ARLINE indicated for Hgb goal less than 10 (3) Hyperphosphatemia Assessment & Plan: Continue home PO4 binders, Calcium acetate 667 mg with meals (4) Hyperparathyroidism due to end stage renal disease on dialysis Assessment & Plan: Maintain PO4 at less than 5.5, , continue home regimen (5) Hypertension Assessment & Plan: Goal less than 140/90 in the acute care setting, continue home regimen, additional UF with dialysis (6) ESRD on dialysis Assessment & Plan: Follow-up at his usual dialysis (7) Chest pain Assessment & Plan: Improved, likely demand ischemia, but would not assign his symptoms to dialysis/ESRD withou the appropriate evaluation Sepsis Screening Skin Color: Normal WALL,DEV M III DO Jan 10, 2025 13:07
[2025-01-10] MEDS ORDERED: CALC667T6 PO (17:41)
--- NOTE | 2025-01-10 17:48 | DISCHARGE SUMMARY ---
Discharge Summary Providers to CC ~ Discharge Summary Admission Diagnosis: Chest pain Hospital Course DATE OF ADMISSION: 01/08/2025 DATE OF DISCHARGE: 01/10/2025 Discharge Diagnosis\\Comment: Chest pain secondary to SVT, type 2 mi, methamphetamine use disorder, hyperkalemia/end-stage renal disease on dialysis/ noncompliance with dialysis, hyperphosphatemia, hypertension, pneumonia ruled out Operations\\Procedures: Heme dialysis Consultants: Dr. Antolin Henry DO manufacturing engineering technician Complications: None Condition on DC: Stable New Medications: Naltrexone Hcl (Naltrexone Hcl) 50 Mg Tablet 1 TAB PO DAILY for 30 Days, #30 TAB 0 Refills Continued Medications: Amlodipine Besylate (Amlodipine Besylate) 10 Mg Tablet 1 TAB PO DAILY Atorvastatin Calcium (Atorvastatin Calcium) 40 Mg Tablet 1 TAB PO DAILY Carvedilol (Carvedilol) 12.5 Mg Tablet 1 TAB PO BID Clonidine HCl (Clonidine HCl) 0.2 Mg Tablet 2 TAB PO TID for 30 Days, #30 TAB 0 Refills Losartan Potassium (Losartan Potassium) 100 Mg Tablet 1 TAB PO DAILY Discharge Summary: Patient was admitted by resident physician JONES Green under the supervision of ADAL Garvey MD with the following HPI: "54 years old man with past medical history of End Stage renal disease on dialysis , Hypertension and Hyperlipidemia presented to ED with Sudden episode of severe dull chest pain of 9/10 non-radiating, lasted for 40 mins while at rest , associated with cold sweats. Pain decreased to 1/10 at evaluation. On arrival , Initial EKG showed SVT(HR>160),which is converted to sinus rhytm after a single dose of adenosine. this was his first episode of chest pain and he denies any prior cardiac history. he also reports shortness of breath on and off with intermittent cough producing small amount of greenish sputum. Patient denies any orthopnea,PND,Legswelling, syncope, hemoptysis, fever and recent travel." The patient is chest pain has been resolved by the time I saw the patient and was likely secondary SVT a he had converted to sinus rhythm with adenosine the patient is on carvedilol which he will remain on carvedilol the patient is troponin was significantly elevated initially 154 the 3rd high sensitivity troponin peaked at 1788 Lexiscan stress test was obtained which was negative for focal myocardial perfusion defects. Thus the elevated high sensitivity troponin was secondary to a type 2 mi due to SVT in light of the fact that the patient has end-stage renal disease on dialysis which will falsely elevate the troponin as well as it takes longer to clear troponin since troponin is cleared by the kidneys. The patient has had missed his dialysis treatment and did receive dialysis during hospitalization he did have hyperkalemia which resolved with dialysis has initial serum potassium was 5.7 on the day discharge his serum potassium is 4.5. The patient is hyperphosphatemia in his serum phosphorus level was 9.7 on admission this did improve slightly to 8.9 the patient is to continuous phosphorus binders with meals. The patient does have methamphetamine use disorder I did inform him that smoking methamphetamines will irritate his heart and put him at risk for further episodes of SVT and I did prescribe naltrexone for the patient to help with his methamphetamine use disorder. Gen. No acute distress alert and oriented 4 Lungs clear to ascultation bilaterally, no wheezes rales or rhonchi appreciated Heart normal sinus rhythm no murmurs rubs or clicks noted Abdomen soft nontender bowel sounds are normoactive Lower extremities no clubbing cyanosis, nor edema appreciated bilaterally The patient felt ready to be discharged and was medically cleared to be discharged on 01/10/2025 The patient was seen and evaluated on day of discharge. Time spent on discharge 40 minutes *Problems/Diagnosis: (1) Hyperphosphatemia (2) ESRD on dialysis Status: Acute Total Time Spent on D/C: > 30 Minutes Date of Service: Jan 10, 2025 Billing Provider: KAREN DANIELS DO Common Visit Codes: [id number] DISCH DAY >30min KAREN DANIELS DO Jan 10, 2025 17:41
[2025-01-12 05:12] LABS: HBSAG SCREEN Negative (Negative)
== END 2025-01-10 11:11 | disposition home or self-care (01) | DRG 201 ==
LOC: ER 01:47 → ED HOLD 04:17 → PCU 3S 06:18
PROVIDERS: ADMIT Internal Medicine Pulmonary Disease; ATTEND Family Medicine
PROC: 5A1D70Z Performance of Urinary Filtration, Intermittent, Less than 6 Hours Per Day (ICD-10-PCS; 2025-01-08)
PROC: 4A02XM4 Measurement of Cardiac Total Activity, External Approach (ICD-10-PCS; principal; 2025-01-09)
PROC: 3E033HZ Introduction of Radioactive Substance into Peripheral Vein, Percutaneous Approach (ICD-10-PCS; 2025-01-09)
PROC: 5A1D70Z Performance of Urinary Filtration, Intermittent, Less than 6 Hours Per Day (ICD-10-PCS; 2025-01-09)
DX: I47.10 Supraventricular tachycardia, unspecified (principal); I21.A1 Myocardial infarction type 2; E87.4 Mixed disorder of acid-base balance; E83.39 Other disorders of phosphorus metabolism; I12.0 Hypertensive chronic kidney disease with stage 5 chronic kidney disease or end stage renal disease; D63.1 Anemia in chronic kidney disease; E87.5 Hyperkalemia; N25.81 Secondary hyperparathyroidism of renal origin; E78.5 Hyperlipidemia, unspecified; N18.6 End stage renal disease; F15.10 Other stimulant abuse, uncomplicated; Z79.899 Other long term (current) drug therapy; Z91.158 Patient's noncompliance with renal dialysis for other reason; Z82.49 Family history of ischemic heart disease and other diseases of the circulatory system; Z99.2 Dependence on renal dialysis
CPT/HCPCS: 36415; 71045; 78452; 80048; 80053; 80061; 81001; 83735; 83880; 84100; 84145; 84443; 84484; 85025; 85379; 85610; 85651; 85730; 86140; 87081; 87088; 87340; 93005; 93017; 93306; 96374; 99291; A6258; A6402; A6449; A9500; E1594; G0257; G0378; J0153; J0696; J1644; J1815; J2785; J3490; J7030; J7040